=== PATIENT | female | born 1970 | race Caucasian/White ===

== ENCOUNTER → 2016-04-18 | Outpatient (CLI) | payer BC | END | disposition home or self-care (01) | LOC: EDBD → GMAL 10:36 | PROVIDERS: ATTEND Family Medicine | DX: E55.9 Vitamin D deficiency, unspecified (principal) ==

== ENCOUNTER → 2016-04-20 | Outpatient (CLI) | payer BC ==
--- NOTE | 2016-04-20 13:31 | US ---
EXAM DESCRIPTION: Hepatic ultrasound CLINICAL HISTORY: 45 years Female, elevated liver enzymes. COMPARISON: None. TECHNIQUE: Grayscale imaging of the liver, gallbladder and pancreas was performed. Static images were saved to the patient's medical record. FINDINGS: The liver is enlarged measuring 18 cm in diameter. It is also echogenic. No definitive mass noted. The gallbladder is unremarkable no gallbladder wall thickening or cholelithiasis noted. The common bile duct measures 3 mm in diameter. The pancreas is unremarkable. IMPRESSION: Today's exam demonstrates hepatomegaly with increased echogenicity of the liver likely compatible with fatty infiltration. Electronically signed by: Hill Aggarwal MD 04/20/2016 1:30 PM DISASTER RECOV[employer] ANALYST
== END | disposition home or self-care (01) ==
LOC: US 10:05
PROVIDERS: ATTEND Family Medicine
DX: R16.0 Hepatomegaly, not elsewhere classified (principal); K76.0 Fatty (change of) liver, not elsewhere classified

== ENCOUNTER → 2016-05-17 | Outpatient (CLI) | payer BC ==
--- NOTE | 2016-05-18 10:34 | NM ---
Procedure: NM HEPATOBILIARY WITH PHARM Exam Date: 05/17/2016 Ordering Provider: KJ YOUNG Clinical Indication: RT UPPER QUAD PAIN Comparison: 04/20/2016 hepatic ultrasound Technique: Seven millicuries of technetium 99m Choletec were administered intravenously. Anterior imaging of the right upper quadrant was obtained. Once the gallbladder was visualized a fatty meal was administered. The gallbladder ejection fraction was then calculated. Findings: There is normal uptake of radiotracer from the blood pool by the liver. There is excretion into the biliary tree at five minutes. There is excretion into the gallbladder at five minutes. There is excretion into the small bowel at 15 minutes. The gallbladder ejection fraction measures 50 % which is normal. Impression: 1. No evidence of acute cholecystitis. 2. Normal gallbladder ejection fraction. Electronically signed by: Torin Alexis MD 05/18/2016 10:32 AM CDT
== END ==
LOC: NM 08:13
PROVIDERS: ATTEND Family Medicine
DX: R10.11 Right upper quadrant pain (principal)

== ENCOUNTER → 2016-06-22 | Outpatient (CLI) | payer BC | END | disposition home or self-care (01) | LOC: LAB.O 09:28 | DX: K52.89 Other specified noninfective gastroenteritis and colitis (principal); R19.4 Change in bowel habit ==

== ENCOUNTER → 2016-06-23 | Outpatient (CLI) | payer BC | END | disposition home or self-care (01) | LOC: LAB 15:06 | DX: K52.89 Other specified noninfective gastroenteritis and colitis (principal); R19.4 Change in bowel habit ==